=== PATIENT | male | born 1960 | race Caucasian/White ===

== ENCOUNTER 2019-10-02 05:42 | Emergency (ER) | payer SELFPAY ==
[~2019-10-02] VITALS: Ht 172.7 cm; Wt 79.4 kg
[2019-10-02 05:42] VITALS: BP 155/90
--- NOTE | 2019-10-02 05:42 | NUR ---
PT [facility]. TAKEN TO BED 6
--- NOTE | 2019-10-02 05:48 | NUR ---
59 YEAR OLD MALE COMPLAINS OF NOSEBLEED X 1 HOUR. PER PATIENT HE DOES NOT TAKE BLOOD THINNERS, DENIES TRAUMA. PATIENT AOX4, BREATHING EVEN AND UNLABORED, SKIN WARM AND DRY. BED IN LOWEST POSITION, LOCKED, BED RAIL UPX1. PLACED CLAMP ON NOSE FOR PATIENT WITH GAUZE. PMH - DENIES ALLERGIES - NKA
[2019-10-02] MEDS ORDERED: TRANEXAMIC ACID 1,000 MG/10 ML VIAL MC ONE (05:50)
--- NOTE | 2019-10-02 06:00 | NUR ---
Dr. Billy examining patient.
--- NOTE | 2019-10-02 06:50 | NUR ---
PATIENT STATES HE NOW HAS DIZZINESS, HEADACHE AND DEMANDS A CT SCAN, ERMD MADE AWARE
--- NOTE | 2019-10-02 07:00 | NUR ---
PATIENT NOSE BLEED, GAUZE REPLACED AND PACKED. FACE CLEANED
--- NOTE | 2019-10-02 07:03 | NUR ---
PT TAKEN TO CT
--- NOTE | 2019-10-02 07:03 | NUR ---
Daily kinney in [facility] - 10/02/19 at 0703 by SHAWNA PT TAKEN TO BED 6
--- NOTE | 2019-10-02 07:06 | NUR ---
REPORT GIVEN TO ISRRAEL NORIEGA, TRANSFER OF CARE AT THIS TIME
--- NOTE | 2019-10-02 07:08 | NUR ---
PT RETURN FROM CT
--- NOTE | 2019-10-02 07:12 | NUR ---
dr ureña examining pt
--- NOTE | 2019-10-02 07:15 | NUR ---
Received report from Jose Francisco, transfer of care at this time
[2019-10-02 07:35] LABS: BASOPHILS # (AUTO) 0.1 K/uL (0.00-0.22); BASOPHILS % (AUTO) 0.8 % (0.0-2.0); EOSINOPHILS # (AUTO) 0.2 K/uL (0-0.4); EOSINOPHILS % (AUTO) 2.6 % (0.0-4.0); HEMATOCRIT 48.2 % (36-52); LYMPHOCYTES # (AUTO) 1.7 K/uL (2.0-11.5); MEAN CORPUSCULAR HEMOGLOBIN 31 pg (27-31); MEAN CORPUSCULAR HGB CONC 33 g/dL (33-37); MEAN CORPUSCULAR VOLUME 92.3 fL (80-94); MONOCYTES # (AUTO) 0.7 K/uL (0.8-1.0); MONOCYTES % (AUTO) 9.6 % (1.7-9.3); NEUTROPHILS # (AUTO) 4.6 K/uL (1.8-7.7); PLATELET COUNT (AUTO) 264 K/uL (140-450); RED BLOOD CELL COUNT(AUTO) 5.22 MIL/uL (4.20-6.10); RED CELL DISTRIBUTION WIDTH 13.8 % (11.6-13.7); WHITE BLOOD COUNT (AUTO) 7.3 K/uL (4.8-10.8)
[2019-10-02 08:02] LABS: ALBUMIN 4.1 g/dL (3.4-5.0); ANION GAP 8.9 (8-16); CARBON DIOXIDE 31.8 mmol/L (21-32); POTASSIUM 3.7 mmol/L (3.5-5.1); TOTAL BILIRUBIN 1.5 mg/dL (0.0-1.0)
[2019-10-02] MEDS ORDERED: ONDANSETRON 4 MG ODT PO ONE (08:15)
[2019-10-02 08:19] LABS: PROTHROMBIN TIME 9.8 secs (10.8-13.4)
--- NOTE | 2019-10-02 08:21 | NUR ---
Pt resting with eyes closed, visible rise and fall of the chest. Arousable to name. vss will continue to monitor
--- NOTE | 2019-10-02 09:08 | NUR ---
Pt denies nausea at this time
--- NOTE | 2019-10-02 09:11 | NUR ---
Patient discharged with v/s stable. Written and verbal after care instructions given and explained. Patient alert, oriented and verbalized understanding of instructions. Ambulatory with steady gait. All questions addressed prior to discharge. ID band removed. Patient advised to follow up with PMD. Rx of flonase and afarin given. Patient educated on indication of medication including possible reaction and side effects. Opportunity to ask questions provided and answered.
[2019-10-02 09:12] VITALS: BP 142/86
== END 2019-10-02 09:12 | disposition home or self-care (01) ==
LOC: MED 05:42
DX: R04.0 Epistaxis (principal)
CPT/HCPCS: 36415; 70450; 80053; 85025; 85610; 85730; 99284; J3490; Q0162; 99282